=== PATIENT | female | born 1970 | race Caucasian/White ===

== ENCOUNTER 2021-04-16 15:35 | Emergency (ER) | payer BC, OTHER ==
[~2021-04-16] VITALS: Ht 152.4 cm; Wt 74.6 kg
[~2021-04-16 15:35] MED LIST: PHEN37.555 PO
[2021-04-16 15:37] VITALS: BP 149/84
[2021-04-16] MEDS ORDERED: ONDANSETRON 4 MG (ZOFRAN) ORAL DISSOLVE TAB PO STA (16:01)
[2021-04-16] MEDS ORDERED: morphine INJ 10 MG/ML 1ML (SYR OR VIAL) IM STA (16:01)
--- NOTE | 2021-04-16 16:08 | ED Cough/URI ---
General Chief Complaint: Cough/Cold/Flu Symptoms Stated Complaint: HEADACHE | CONGESTION | EARACHE Nursing Triage Note: Patient reports a headache for 1 week, states she has seasonal allergies and has had sneezing, coughing from the drainage, and an earache as well. States she was seen by her PCP last week and diagnosed with a sinus infection, states she has been taking augmentin and steroids without any improvement. Source: patient Exam Limitations: no limitations History of Present Illness Date Seen by Provider: Apr 16, 2021 Time Seen by Provider: 13:50 Initial Comments Patient is a 50-year-old female with history of hypertension who presents with nasal congestion rhinorrhea, sinus pain and tenderness for 1 week. Patient also has seasonal allergies and has had sneezing coughing and bilateral ear pain. She was evaluated by her PCP last week and diagnosed with a sinus infection. She was prescribed Augmentin, and prednisone. She has been taking these medications in addition to Excedrin Migraine, Claritin and Flonase with minimal relief of symptoms. She has also been using saline rinses. She relates bilateral ear pain, headache dullness and mild nausea. She has been unable to get relief of symptoms and has had difficulty sleeping secondary to the same. She denies fever, neck pain, stiffness or rash. She denies vomiting, chest pain palpitations or abdominal pain. No other acute symptoms or complaints. Patient is not a smoker. Timing/Duration: this afternoon Severity/Quality: mild Prior Episodes/Possible Cause: other Modifying Factors: Improves With Other Associated Symptoms: other Allergies and Home Medications Allergies Coded Allergies: No Known Drug Allergies (Unverified , 09/13/11) Home Medications Phentermine Hcl 37.5 Mg Capsule, 37.5 MG PO DAILY, (Reported) Patient Home Medication List Home Medication List Reviewed: Yes Review of Systems Review of Systems Constitutional: see HPI Respiratory: see HPI, cough Cardiovascular: see HPI Gastrointestinal: see HPI Genitourinary: see HPI Musculoskeletal: see HPI Skin: no symptoms reported Psychiatric/Neurological: No Symptoms Reported Hematologic/Lymphatic: No Symptoms Reported Immunological/Allergic: no symptoms reported All Other Systems Reviewed Negative Unless Noted: Yes Past Flooaqj-Hhftfc-Yonopv Hx Patient Social History Tobacco Use?: Yes Substance use?: No Alcohol Use?: No Pt feels they are or have been: No Past Medical History Surgery/Hospitalization HX: Hx HTN Reproductive Disorders: No Physical Exam Vital Signs - First Documented 04/16/21 15:37 Temp 36.6 Pulse 106 Resp 18 B/P (MAP) 149/84 (105) Pulse Ox 95 O2 Delivery Room Air Capillary Refill : Less Than 3 Seconds Height: '" Weight: lbs. oz. kg; 32.00 BMI Method: General Appearance: mild distress Eyes: Bilateral Eye Normal Inspection, Bilateral Eye PERRL, Bilateral Eye EOMI HEENT: PERRL/EOMI, pharynx normal, other (Bilateral TM, bulging with clear effusions, maxillary sinus tenderness, turbinate swelling.) Neck: full range of motion, supple Respiratory: chest non-tender, lungs clear, normal breath sounds Cardiovascular: normal peripheral pulses, regular rate, rhythm, no gallop, no JVD Gastrointestinal: normal bowel sounds, non tender, soft Extremities: normal range of motion, non-tender Neurologic/Psychiatric: alert, normal mood/affect, oriented x 3 Progress/Results/Core Measures Suspected Sepsis SIRS Temperature: Pulse: 106 Respiratory Rate: 18 Blood Pressure 149 /84 Mean: 105 Results/Orders My Orders Orders - EMILIA FORD DO Morphine Injection (Morphine Injection (04/16/21 16:01) Ondansetron Oral Dissolve Tab (Zofran (04/16/21 16:01) Prochlorperazine Injection (Compazine In (04/16/21 16:15) Vital Signs/I&O 04/16/21 04/16/21 15:37 15:50 Temp 36.6 Pulse 106 Resp 18 B/P (MAP) 149/84 (105) Pulse Ox 95 O2 Delivery Room Air Room Air Capillary Refill : Less Than 3 Seconds Blood Pressure Mean: 105 Departure Communication (Admissions) Patient with symptomatic headache likely secondary to sinusitis. She is also missed today's blood pressure medication but states blood pressure is normally well controlled. No malignant features. Will treat supportively with continued therapeutic and supportive care with PCP follow-up. Return precautions reviewed. Patient verbalizes understanding agreement discharge instructions prior to departure. Impression Primary Impression: Sinus headache Additional Impression: Sinusitis Disposition: HOME, SELF-CARE Condition: Stable Departure-Patient Inst. Decision time for Depature: 16:07 Referrals: ROMMEL ASTORGA MD (PCP/Family) Primary Care Physician Patient Instructions: Sinusitis, Adult (DC), Sinus Headache (DC) Add. Discharge Instructions: Please go home and rest. Continue home medications and take hydrocodone and Mucinex-D as needed for additional relief. Follow-up with your PCP in 3 to 5 days for reevaluation if symptoms persist. Return to the ED if new or worsening symptoms. All discharge instructions reviewed with patient and/or family. Voiced understanding. Scripts Hydrocodone/Acetaminophen (Hydrocodone-Acetamin 5-325 mg) 1 Each Tablet 1 TAB PO Q4H PRN for PAIN-MODERATE (5-7), #14 TAB Prov: EMILIA FORD DO 04/16/21 Guaifenesin/Pseudoephedrne HCl (Mucinex D ER 1,200-120 mg Tab) 1 Each Tab.er.12h 1 EACH PO DAILY PRN, #20 TAB Prov: EMILIA FORD DO 04/16/21 EMILIA FORD DO Apr 16, 2021 16:08
[2021-04-16] MEDS ORDERED: ACHD5005 PO (16:09)
[2021-04-16] MEDS ORDERED: GUAI-365 PO (16:09)
[2021-04-16] MEDS ORDERED: PROCHLORPERAZINE 10 MG/2ML INJ (COMPAZINE) IM ONE (16:15)
== END 2021-04-16 16:30 | disposition home or self-care (01) ==
LOC: EDUNIT# 15:35 → ER FS 15:38
DX: J32.0 Chronic maxillary sinusitis (principal); I10 Essential (primary) hypertension
CPT/HCPCS: 99284

== ENCOUNTER 2021-04-18 15:57 | Emergency (ER) | payer BC ==
[~2021-04-18] VITALS: Ht 152.4 cm; Wt 71.6 kg
[~2021-04-18 15:57] MED LIST changes: +ACHD5005 PO; +GUAI-365 PO
[2021-04-18] MEDS ORDERED: RX-ALBUTEROL INHALER (VENTOLIN HFA) 18 GM IH PRN (16:30)
[2021-04-18] MEDS ORDERED: NS IV 1000 ML 1,000 ML IV SCH (16:30)
--- NOTE | 2021-04-18 16:47 | Diagnostic Imaging Report ---
EXAM: CHEST 1 VIEW AP/PA ONLY INDICATION: Cough. Shortness of air. COVID positive. COMPARISON: None. FINDINGS: Low lung volumes accentuate the heart size which is likely normal. Patchy airspace opacities throughout both lungs. No pleural effusion or pneumothorax. No acute osseous findings. IMPRESSION: Patchy airspace opacities throughout both lungs, compatible with reported COVID diagnosis. Dictated by: Dictated on workstation # [id number]
[2021-04-18 17:33] LABS: ABG PCO2 37 MMHG (35-45); ABG PH 7.48 (7.37-7.43); ABG PO2 53 MMHG (79-93); ABG TCO2 28.7 MMOL/L (21.0-31.0)
[2021-04-18 17:34] LABS: ABG OXYGEN SATURATION 90 % (94-100); ALLENS TEST YES-POS; INSPIRED O2 ROOM AIR; PATIENT TEMP 36.8; VENTILATOR NO
[2021-04-18 17:46] LABS: HEMATOCRIT 38 % (35-52); HEMOGLOBIN 12.8 G/DL (11.5-16.0); MEAN CORPUSCULAR HEMOGLOBIN 30 PG (25-34); MEAN CORPUSCULAR HGB CONC 34 G/DL (32-36); MEAN CORPUSCULAR VOLUME 89 FL (80-99); MEAN PLATELET VOLUME 10.3 FL (7.4-10.4); NEUTROPHILS % (AUTO) 85 % (42-75); PLATELET COUNT 198 10^3/uL (130-400); WHITE BLOOD COUNT 5.1 10^3/uL (4.3-11.0)
[2021-04-18 17:47] LABS: BASOPHILS % (AUTO) 0 % (0-10); EOSINOPHILS % (AUTO) 0 % (0-10); LYMPHOCYTES # (AUTO) 0.5 X 10^3 (1.0-4.0); LYMPHOCYTES % (AUTO) 9 % (12-44); MONOCYTES # (AUTO) 0.3 X 10^3 (0.0-1.0); MONOCYTES % (AUTO) 6 % (0-12); NEUTROPHILS # (AUTO) 4.3 X 10^3 (1.8-7.8)
--- NOTE | 2021-04-18 17:55 | ED Dyspnea ---
General Chief Complaint: Respiratory Problems Stated Complaint: SOB; COVID+ Nursing Triage Note: PT AMBULATORY TO ED. PT REPORTS BEING DIAGNOSED COVID + AT [facility] TODAY. PT REPORTS [facility] SENT PT TO ED FOR LOW O2 SAT OF 92% AT THE CLINIC. PT REPORTS FATIGUE, COUGH, SOB AND FEVER ONLY AT NIGHT. PT REPORTS FEVER OF 104 THIS MORNING. PT REPORTS TAKING TYLENOL AND IBU THIS MORNING. PT REPORTS SYMPTOMS BEGAN ON APRIL 10. Source of Information: Patient History of Present Illness Date Seen by Provider: Apr 18, 2021 Time Seen by Provider: 16:06 Initial Comments 50-year-old female presenting with concerns for low oxygen saturation. She had been sick all last week and was told that she had sinusitis. Her symptoms st arted around April 10. She denies having the Covid vaccination. She was seen on Saturday here in the emergency department for continued symptoms of not improving. At that time the told her that she had sinusitis as well and changed her medications. She has been on Augmentin and steroids since then. In the last 2 nights she has had fevers up to 104 Fahrenheit for the maximum. She was feeling more short of breath today so she brought through the clinic in the had done a Covid swab which was positive. Her oxygen saturations were 90 to 92% in the clinic and she was advised to come to the emergency department. Here she was anywhere from 87 to 92%. She denies any history of oxygen problems or lung problems in the past. She has been feeling fatigued and rundown. She has some cough that is been mostly nonproductive. She feels more short of breath especially with exertion. She denies any swelling in her legs. Timing/Duration: Other (worsening in last few days but originally started aroun d April 10) Severity: Severe Modifying Factors: Worse With Activity, Worse With Coughing Associated Symptoms: Cough, Fever, Lightheadedness, Loss of Appetite, Weakness, Wheezing Allergies and Home Medications Allergies Coded Allergies: No Known Drug Allergies (Unverified , 09/13/11) Home Medications Guaifenesin/Pseudoephedrne HCl 1 Each Tab.er.12h, 1 EACH PO DAILY PRN Prescribed by: EMILIA FORD on 04/16/21 1609 Hydrocodone/Acetaminophen 1 Each Tablet, 1 TAB PO Q4H PRN for PAIN-MODERATE (5- 7) Prescribed by: EMILIA FORD on 04/16/21 1609 Phentermine Hcl 37.5 Mg Capsule, 37.5 MG PO DAILY, (Reported) Patient Home Medication List Home Medication List Reviewed: Yes Review of Systems Review of Systems Constitutional: chills, dizziness, fever, malaise, weakness EENTM: nose congestion, other (sinus pressure) Respiratory: cough, dyspnea on exertion, short of breath; No stridor Cardiovascular: No chest pain, No edema Gastrointestinal: no symptoms reported Genitourinary: decreased output Musculoskeletal: no symptoms reported Skin: No rash Psychiatric/Neurological: Headache Past Amdsksv-Uadxhy-Ggmkft Hx Patient Social History Tobacco Use?: No Substance use?: No Alcohol Use?: Yes Alcohol Frequency: Once in a while Pt feels they are or have been: No Past Medical History Surgery/Hospitalization HX: Hx HTN Surgeries: No Respiratory: No Cardiac: Yes Hypertension Neurological: No Reproductive Disorders: No Physical Exam Vital Signs Vital Signs - First Documented 04/18/21 16:05 Temp 36.8 Pulse 103 Resp 20 B/P (MAP) 153/84 (107) Pulse Ox 93 O2 Delivery Room Air Capillary Refill : Less Than 3 Seconds Height, Weight, BMI Height: '" Weight: lbs. oz. 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 Norm as Tested Skin: Normal Color, Warm/Dry; No Rash Focused Exam Lactate Level 04/18/21 17:20: Lactic Acid Level 1.10 Lactic Acid Level Laboratory Tests Test 04/18/21 17:20 Lactic Acid Level 1.10 MMOL/L (0.50-2.00) Progress/Results/Core Measures Results/Orders Lab Results Laboratory Tests Test 04/18/21 17:20 Range/Units White Blood Count 5.1 4.3-11.0 10^3/uL Red Blood Count 4.24 L 4.35-5.85 10^6/uL Hemoglobin 12.8 11.5-16.0 G/DL Hematocrit 38 35-52 % Mean Corpuscular Volume 89 80-99 FL Mean Corpuscular Hemoglobin 30 25-34 PG Mean Corpuscular Hemoglobin Concent 34 32-36 G/DL Red Cell Distribution Width 12.5 10.0-14.5 % Platelet Count 198 130-400 10^3/uL Mean Platelet Volume 10.3 7.4-10.4 FL Immature Granulocyte % (Auto) 0 % Neutrophils (%) (Auto) 85 H 42-75 % Lymphocytes (%) (Auto) 9 L 12-44 % Monocytes (%) (Auto) 6 0-12 % Eosinophils (%) (Auto) 0 0-10 % Basophils (%) (Auto) 0 0-10 % Neutrophils # (Auto) 4.3 1.8-7.8 X 10^3 Lymphocytes # (Auto) 0.5 L 1.0-4.0 X 10^3 Monocytes # (Auto) 0.3 0.0-1.0 X 10^3 Eosinophils # (Auto) 0.0 0.0-0.3 10^3/uL Basophils # (Auto) 0.0 0.0-0.1 10^3/uL Immature Granulocyte # (Auto) 0.0 0.0-0.1 10^3/uL Prothrombin Time 12.4 12.2-14.7 SEC INR Comment 0.9 0.8-1.4 Activated Partial Thromboplast Time 31 24-35 SEC D-Dimer 0.47 0.00-0.49 UG/ML Blood Gas Puncture Site RT. RADIAL Blood Gas Patient Temperature 36.8 Arterial Blood pH 7.48 H 7.37-7.43 Arterial Blood Partial Pressure CO2 37 35-45 MMHG Arterial Blood Partial Pressure O2 53 L 79-93 MMHG Arterial Blood HCO3 28 H 23-27 MMOL/L Arterial Blood Total CO2 28.7 21.0-31.0 MMOL/L Arterial Blood Oxygen Saturation 90 L 94-100 % Arterial Blood Base Excess 4.0 H -2.5-2.5 MMOL/L Elian Test YES-POS Blood Gas Ventilator Setting NO Blood Gas Inspired Oxygen ROOM AIR Sodium Level 136 135-145 MMOL/L Potassium Level 3.5 L 3.6-5.0 MMOL/L Chloride Level 100 98-107 MMOL/L Carbon Dioxide Level 24 21-32 MMOL/L Anion Gap 12 5-14 MMOL/L Blood Urea Nitrogen 14 7-18 MG/DL Creatinine 0.54 L 0.60-1.30 MG/DL Estimat Glomerular Filtration Rate > 60 BUN/Creatinine Ratio 26 Glucose Level 147 H 70-105 MG/DL Lactic Acid Level 1.10 0.50-2.00 MMOL/L Calcium Level 8.3 L 8.5-10.1 MG/DL Corrected Calcium 8.5 8.5-10.1 MG/DL Total Bilirubin 0.2 0.1-1.0 MG/DL Aspartate Amino Transf (AST/SGOT) 91 H 5-34 U/L Alanine Aminotransferase (ALT/SGPT) 124 H 0-55 U/L Alkaline Phosphatase 74 40-136 U/L Troponin I < 0.30 <0.30 NG/ML C-Reactive Protein 5.88 H <0.50 MG/DL Total Protein 6.4 6.4-8.2 GM/DL Albumin 3.7 3.2-4.5 GM/DL My Orders Orders - YESSENIA LITTLE MD Monitor-Rhythm Ecg Trace Only (04/18/21 16:27) Ed Iv/Invasive Line Start (04/18/21 16:27) Cbc With Automated Diff (04/18/21 16:27) Comprehensive Metabolic Panel (04/18/21 16:27) Crp Fs (04/18/21 16:27) Troponin I Fs (04/18/21 16:27) Protime With Inr (04/18/21 16:) Partial Thromboplastin Time (04/18/21 16:27) Ekg Tracing (04/18/21 16:27) Arterial Blood Gas (04/18/21 16:27) Ns Iv 1000 Ml (Sodium Chloride 0.9%) (04/18/21 16:30) Blood Culture (04/18/21 16:27) Lactic Acid Analyzer (04/18/21 16:27) Chest 1 View Ap/Pa Only (04/18/21 16:27) Rx-Albuterol Inhaler (Rx-Ventolin Hfa) (04/18/21 16:30) Fibrin Degradation Products (04/18/21 18:24) Dexamethasone Injection (Decadron Inje (04/18/21 18:28) Medications Given in ED Current Medications Medications Dose Ordered Sig/Jennifer Route Start Time Stop Time Status Last Admin Dose Admin Albuterol Sulfate 2 PUFFS IH Q4HR PRN wheeze/soa RTQ4HR PRN IH 04/18/21 16:30 04/18/21 17:15 18 GM Vital Signs/I&O 04/18/21 04/18/21 16:05 19:40 Temp 36.8 36.8 Pulse 103 103 Resp 20 20 B/P (MAP) 153/84 (107) 153/84 (107) Pulse Ox 93 93 O2 Delivery Room Air Blood Pressure Mean: 107 Progress Progress Note #1: Progress Note Obtain electrocardiogram as well as labs and chest x-ray. ABG to evaluate her oxygen saturation and how well she is exchanging oxygen and carbon dioxide. Give IV fluids for hydration, albuterol inhaler to try and help with her breathing Progress Note #2: Progress Note Labs show stable CBC and negative lactic acid. Her EEG did show some alkalosis with a pH of 7.48. Her oxygen levels low PO2 of 53. Her PCO2 was 37. The oxygen saturation 90% matches up with what she was on room air at the time of obtaining the blood gas. She did drift down to 86-87% in the room and was placed on 2 L by nasal cannula. With this she has come up to the low to mid 90s. Progress Note #3: Progress Note cxr shows diffuse patchy infiltrate consistent with Covid. Discussed with patient and with the hospitalist Dr. Alford for the [facility] service about admission since she was requiring supplemental oxygen. He agreed to the admission for the patient and requested a procalcitonin and D-dimer levels. He recommended continuing with Decadron and the respiratory MAT protocol. Pt has not been able to have IV access obtained and she is refusing to go by EMS transport and states she understands that she will have to go straight to the hospital and if not showing up within an hour of discharge from the ED she would have to start over in the ED there. She is agreeable to the transfer but understands she runs the risk of having complications due to hypoxia such as stroke, heart attack, . She is still agreeable to being admitted but wants to have her drive her other than go by ambulance. Will work on an IV placement when arriving at [place]. She had several IV attempts here in the ED without success. They were able to obtain labs though. Progress Note #4: Progress Note Shortly after shift change at 1900 the patient was more upset that it was taking so long to get a bed and admit at [facility]. She was advised that they were having to move patients and make a bed available for her since she was Covid positive. However, she continued to be more anxious and wanting to leave. Advised she will have to sign out AMA if she leaves before a bed assignment is found for the patient. She finally told the nurses that even though it meant having to start all over again if she went to [place] she would rather leave AMA and get some things done at home rather than sit here and wait. She stated that she understood being off of supplemental oxygen meant more stress on her heart, lungs, kidney, brain and organs and body in general and could result in stroke, heart attack, pulmonary embolus, worsening condition. Despite this she still wanted to leave AMA. Initial ECG Impression Date: Apr 18, 2021 Initial ECG Impression Time: 17:08 Initial ECG Rate: 92 Initial ECG Rhythm: Normal Sinus Initial ECG Comparisson: No Previous ECG Available Comment Normal sinus rhythm with heart rate 92 bpm. NE interval [address] elevation. QT interval 348 ms with a QTc interval 429 ms. There is no prior tracing available for comparison. Diagnostic Imaging Diagonstic Imaging: Xray Plain Films/CT/US/NM/MRI: chest Comments [facility]. [place], [place] NAME: CHRISTIANA HANSEN [facility] REC#: [id number] PT STATUS: REG ER : 1970 PHYSICIAN: YESSENIA LITTLE MD ADMIT DATE: 04/18/21/ER FS Signed Date of Exam:04/18/21 CHEST 1 VIEW AP/PA ONLY EXAM: CHEST 1 VIEW AP/PA ONLY INDICATION: Cough. Shortness of air. COVID positive. COMPARISON: None. FINDINGS: Low lung volumes accentuate the heart size which is likely normal. Patchy airspace opacities throughout both lungs. No pleural effusion or pneumothorax. No acute osseous findings. IMPRESSION: Patchy airspace opacities throughout both lungs, compatible with reported COVID diagnosis. Dictated by: Dictated on workstation # [id number] Dict: 04/18/21 1644 Trans: 04/18/210 AS6 [id number] Interpreted by: SUDEEP LOBO MD Electronically signed by: SUDEEP LOBO MD 04/18/211699 Reviewed: Reviewed by Me Departure Impression Primary Impression: Hypoxia Additional Impression: COVID-19 virus infection Disposition: AGAINST MEDICAL ADVICE Condition: Against Medical Advice Departure-Patient Inst. Referrals: ROMMEL ASTORGA MD (PCP/Family) Primary Care Physician YESSENIA LITTLE MD Apr 18, 2021 17:55
[2021-04-18 17:57] LABS: BILIRUBIN,TOTAL 0.2 MG/DL (0.1-1.0); BUN/CREATININE RATIO 26; CALCIUM 8.3 MG/DL (8.5-10.1); CARBON DIOXIDE 24 MMOL/L (21-32); CHLORIDE 100 MMOL/L (98-107); CREATININE SERUM 0.54 MG/DL (0.60-1.30); GFR ESTIMATED > 60; GLUCOSE 147 MG/DL (70-105); POTASSIUM 3.5 MMOL/L (3.6-5.0); SODIUM 136 MMOL/L (135-145)
[2021-04-18 17:58] LABS: ALBUMIN 3.7 GM/DL (3.2-4.5); ALKALINE PHOSPHATASE 74 U/L (40-136); TOTAL PROTEIN 6.4 GM/DL (6.4-8.2)
[2021-04-18 18:00] LABS: ALANINE AMINOTRANSFERASE 124 U/L (0-55)
[2021-04-18 18:02] LABS: INR 0.9 (0.8-1.4); PROTHROMBIN TIME PATIENT 12.4 SEC (12.2-14.7)
[2021-04-18 19:40] VITALS: BP 153/84
== END 2021-04-18 19:40 | disposition left against medical advice (07) ==
LOC: EDUNIT# 15:57 → ER FS 15:59
DX: U07.1 COVID-19 (principal); R09.02 Hypoxemia; I10 Essential (primary) hypertension
CPT/HCPCS: 36415; 71045; 80053; 82805; 83605; 84484; 85025; 85379; 85610; 85730; 86141; 87040; 93005; 93041

== ENCOUNTER → 2021-05-09 | Outpatient (CLI) | payer BC ==
--- NOTE | 2021-05-09 11:40 | Diagnostic Imaging Report ---
EXAMINATION: Chest 2 view HISTORY: Covid-19. COMPARISON: 04/18/2021 FINDINGS: There are moderate bilateral interstitial markings which are likely due to evolving Covid-19 pneumonia/fibrosis. No pleural effusion or pneumothorax. Heart size is normal. IMPRESSION: 1. Moderate bilateral interstitial markings likely due to evolving Covid-19 pneumonia/fibrosis. Dictated by: Dictated on workstation # [id number]
== END ==
LOC: RAD FS 10:28
PROVIDERS: ATTEND Family Medicine
DX: U07.1 COVID-19 (principal); J12.82 Pneumonia due to coronavirus disease 2019
CPT/HCPCS: 71046

== ENCOUNTER → 2022-03-26 | Outpatient (CLI) | payer BC ==
[~2022-03-26] MED LIST changes: +RT-ALBUTEROL SULF 2.5 MG/3 ML PRE-MIX VIAL INH ONE
== END ==
LOC: RT 08:00
PROVIDERS: ATTEND Nurse Practitioner Family
DX: R06.02 Shortness of breath (principal)
CPT/HCPCS: 94060; 94726; 94729

== ENCOUNTER 2022-04-05 09:10 | Outpatient (CLI) | payer BC ==
[~2022-04-05 09:10] MED LIST changes: -RT-ALBUTEROL SULF 2.5 MG/3 ML PRE-MIX VIAL INH ONE
[2022-04-05] MEDS ORDERED: BEBTELOVIMAB 175 MG/2 ML VIAL IV ONE (09:30)
[2022-04-05] MEDS ORDERED: ONDANSETRON 4 MG/2 ML (SDV) Z0FRAN IV PRN (09:30)
[2022-04-05] MEDS ORDERED: EPINEPHrine INJECTION 1 MG/ML AMP IM PRN (09:30)
[2022-04-05] MEDS ORDERED: diphenhydrAMINE 50 MG/ML INJ (BENADRYL) IV PRN (09:30)
[2022-04-05] MEDS ORDERED: ACETAMINOPHEN 500 MG TAB (TYLENOL) PO PRN (09:30)
[2022-04-05 09:34] VITALS: BP 144/100
[2022-04-05 10:02] VITALS: BP 138/89
== END 2022-04-05 10:05 ==
LOC: INFUSION 09:10
PROVIDERS: ATTEND Nurse Practitioner Family
DX: U07.1 COVID-19 (principal)